=== PATIENT | male | born 1985 | race Two or more races ===

== ENCOUNTER 2017-10-18 10:11 | Emergency (ER) | payer OTHER ==
[~2017-10-18] VITALS: Ht 172.7 cm; Wt 86.2 kg
[2017-10-18 11:21] LABS: BASO % 1 % (0-3); EOS # 0.3 x10^3/uL (0.0-0.7); EOS % 4 % (0-3); HEMATOCRIT 44.5 % (39.0-53.0); HEMOGLOBIN 15.6 g/dL (13.0-17.5); LYMPH # 1.4 x10^3/uL (1.0-4.8); LYMPH % 21 % (24-48); MEAN CORPUSCULAR HEMOGLOBIN 30 pg (25-35); MEAN CORPUSCULAR HGB CONC 35 g/dL (31-37); MEAN CORPUSCULAR VOLUME 87 fL (79-100); MONO # 0.4 x10^3/uL (0.0-1.1); MONO % 6 % (0-9); NEUT # 4.5 x10^3uL (1.8-7.7); NEUT % 68 % (31-73); PLATELET COUNT 285 x10^3/uL (140-400); RED BLOOD COUNT 5.14 x10^6/uL (4.30-5.70); RED CELL DISTRIBUTION WIDTH 13.5 % (11.5-14.5); WHITE BLOOD COUNT 6.6 x10^3/uL (4.0-11.0)
[2017-10-18 11:23] LABS: BARBITURATES NEG (NEG); BENZODIAZEPINES NEG (NEG); CANNABINOIDS POS (NEG); COCAINE POS (NEG); METHADONE NEG (NEG); OPIATES NEG (NEG); PHENCYCLIDINE NEG (NEG)
[2017-10-18 11:23] LABS: ALBUMIN 3.9 g/dL (3.4-5.0); ALBUMIN/GLOBULIN RATIO 1.1 (1.0-1.7); CALCIUM 9.1 mg/dL (8.5-10.1); GFR 88.3; TOTAL BILIRUBIN 0.4 mg/dL (0.2-1.0); TOTAL PROTEIN 7.5 g/dL (6.4-8.2)
[2017-10-18 11:24] LABS: AMPHETAMINE/METHAMPHETAMINE NEG (NEG)
[2017-10-18 11:26] LABS: BACTERIA,URINE 0 /HPF (0-FEW); BILIRUBIN,URINE NEG (NEG); CLARITY,URINE CLEAR; COLOR,URINE YELLOW; GLUCOSE,URINE NEG (NEG); NITRITE,URINE NEG (NEG); RBC,URINE RARE /HPF (0-2); SQUAMOUS EPITHELIAL CELL,UR OCC /LPF; UROBILINOGEN,URINE 0.2 mg/dL (0.2 mg/dL); WBC,URINE RARE /HPF (0-4)
[2017-10-18 11:36] LABS: INFLUENZA A PATIENT NEGATIVE (NEGATIVE); INFLUENZA B PATIENT NEGATIVE (NEGATIVE)
[2017-10-18] MEDS ORDERED: KETOROLAC 30 MG/ML VIAL. IV ONE (12:15)
[2017-10-18] MEDS ORDERED: Percogesic PO (12:19)
[2017-10-18] MEDS ORDERED: CYCL-331 PO (12:19)
[2017-10-18] MEDS ORDERED: BENZ100C PO (12:19)
--- NOTE | 2017-10-18 12:19 | PHYS DOC ---
Past History Past Medical History: Cancer, Other Past Surgical History: No Surgical History Alcohol Use: None Drug Use: Marijuana Adult General Chief Complaint Chief Complaint: ABDOMINAL PAIN HPI HPI 31-year-old male patient states he had history of pancreatic cancer and treated with radiation therapy intakes as in 2016 and was considered to for the last 2 months. Patient complaining of left upper quadrant epigastric pain with radiation to left side of chest for the last 2 days as a constant pain nausea and dry heaves and rated his pain 8 over 10 and states he had the same pain as previous episodes of pancreatitis cancer. Patient also complaining of URI symptoms with cough and congestion and posttussive vomiting for the same time. Evaluation state he uses marijuana more than 20 days ago but denies using any other drug and alcohol. Review of Systems Review of Systems Constitutional: Reports fever and chills Eyes: Denies change in visual acuity, redness, or eye pain [] HENT: Reports nasal congestion and sore throat Respiratory: Reports cough and shortness of breath Cardiovascular: No additional information not addressed in HPI [] GI: Reports abdominal pain, nausea, vomiting, denies bloody stools or diarrhea [ ] : Denies dysuria or hematuria [] Musculoskeletal: Denies back pain or joint pain [] Integument: Denies rash or skin lesions [] Neurologic: Denies headache, focal weakness or sensory changes [] Endocrine: Denies polyuria or polydipsia [] All other systems were reviewed and found to be within normal limits, except as documented in this note. Current Medications Current Medications Current Medications Medications (Trade) Dose Ordered Sig/[facility] Start Time Stop Time Status Last Admin Dose Admin Ketorolac Tromethamine (Toradol) 30 mg 1X ONCE 10/18/17 12:15 10/18/17 12:16 UNV Allergies Allergies Allergies Coded Allergies Type Severity Reaction Last Updated Verified No Known Drug Allergies 10/18/17 No Physical Exam Physical Exam Constitutional: Well developed, well nourished, no acute distress, non-toxic appearance, anxious [] HENT: Normocephalic, atraumatic, bilateral external ears normal, oropharynx moist, no oral exudates, nose normal. [] Eyes: PERRLA, EOMI, conjunctiva normal, no discharge. [] Neck: Normal range of motion, no tenderness, supple, no stridor. [] Cardiovascular:Heart rate regular rhythm, no murmur [] Lungs & Thorax: Bilateral breath sounds clear to auscultation [] Abdomen: Bowel sounds normal, soft, no tenderness, no masses, no pulsatile masses. [] Skin: Warm, dry, no erythema, no rash. [] Back: No tenderness, no CVA tenderness. [] Extremities: No tenderness, no cyanosis, no clubbing, ROM intact, no edema. [] Neurologic: Alert and oriented X 3, normal motor function, normal sensory function, no focal deficits noted. [] Psychologic: Anxious Current Patient Data Vital Signs Vital Signs Date Time Temp Pulse Resp B/P (MAP) Pulse Ox O2 Delivery O2 Flow Rate FiO2 10/18/17 10:25 98.3 73 20 100 Room Air Lab Results Laboratory Tests Test 10/18/17 10:35 10/18/17 10:42 10/18/17 10:43 Urine Collection Type Unknown Urine Color Yellow Urine Clarity Clear Urine pH 5.5 Urine Specific Buras 1.020 Urine Protein Neg (NEG-TRACE) Urine Glucose (UA) Neg mg/dL (NEG) Urine Ketones (Stick) Neg mg/dL (NEG) Urine Blood Neg (NEG) Urine Nitrite Neg (NEG) Urine Bilirubin Neg (NEG) Urine Urobilinogen Dipstick 0.2 mg/dL (0.2 mg/dL) Urine Leukocyte Esterase Neg (NEG) Urine RBC Rare /HPF (0-2) Urine WBC Rare /HPF (0-4) Urine Squamous Epithelial Cells Occ /LPF Urine Bacteria 0 /HPF (0-FEW) Urine Mucus Slight /LPF Urine Opiates Screen Neg (NEG) Urine Methadone Screen Neg (NEG) Urine Barbiturates Neg (NEG) Urine Phencyclidine Screen Neg (NEG) Urine Amphetamine/Methamphetamine Neg (NEG) Urine Benzodiazepines Screen Neg (NEG) Urine Cocaine Screen Pos (NEG) Urine Cannabinoids Screen Pos (NEG) Urine Ethyl Alcohol Neg (NEG) White Blood Count 6.6 x10^3/uL (4.0-11.0) Red Blood Count 5.14 x10^6/uL (4.30-5.70) Hemoglobin 15.6 g/dL (13.0-17.5) Hematocrit 44.5 % (39.0-53.0) Mean Corpuscular Volume 87 fL (79-100) Mean Corpuscular Hemoglobin 30 pg (25-35) Mean Corpuscular Hemoglobin Concent 35 g/dL (31-37) Red Cell Distribution Width 13.5 % (11.5-14.5) Platelet Count 285 x10^3/uL (140-400) Neutrophils (%) (Auto) 68 % (31-73) Lymphocytes (%) (Auto) 21 % (24-48) L Monocytes (%) (Auto) 6 % (0-9) Eosinophils (%) (Auto) 4 % (0-3) H Basophils (%) (Auto) 1 % (0-3) Neutrophils # (Auto) 4.5 x10^3uL (1.8-7.7) Lymphocytes # (Auto) 1.4 x10^3/uL (1.0-4.8) Monocytes # (Auto) 0.4 x10^3/uL (0.0-1.1) Eosinophils # (Auto) 0.3 x10^3/uL (0.0-0.7) Basophils # (Auto) 0.0 x10^3/uL (0.0-0.2) Sodium Level 140 mmol/L (136-145) Potassium Level 4.0 mmol/L (3.5-5.1) Chloride Level 105 mmol/L (98-107) Carbon Dioxide Level 25 mmol/L (21-32) Anion Gap 10 (6-14) Blood Urea Nitrogen 13 mg/dL (8-26) Creatinine 1.0 mg/dL (0.7-1.3) Estimated GFR (Cockcroft-Gault) 88.3 BUN/Creatinine Ratio 13 (6-20) Glucose Level 114 mg/dL (70-99) H Calcium Level 9.1 mg/dL (8.5-10.1) Total Bilirubin 0.4 mg/dL (0.2-1.0) Aspartate Amino Transferase (AST) 29 U/L (15-37) Alanine Aminotransferase (ALT) 56 U/L (16-63) Alkaline Phosphatase 72 U/L (46-116) Total Protein 7.5 g/dL (6.4-8.2) Albumin 3.9 g/dL (3.4-5.0) Albumin/Globulin Ratio 1.1 (1.0-1.7) Lipase 98 U/L (73-393) Influenza Type A (Rapid) Negative (NEGATIVE) Influenza Type B (Rapid) Negative (NEGATIVE) EKG EKG [] Radiology/Procedures Radiology/Procedures [] Course & Med Decision Making Course & Med Decision Making Pertinent Labs studies reviewed. (See chart for details) Evaluation of patient in ER showed 31-year-old male patient from [place] for thinking this area and states he had pancreatic cancer 2 years ago and treated with radiation therapy! She complaining of abdominal pain like previous episodes of his pancreatic cancer pain and asking for pain medication. Patient had drug-seeking behavior and asking for hydrocodone for his pain. Patient had unremarkable physical exam and labs and normal lipase. Patient instructed to follow-up with his primary care physician for chronic pain medication refill. Dragon Disclaimer Dragon Disclaimer This electronic medical record was generated, in whole or in part, using a voice recognition dictation system. Departure Departure: Impression: Primary Impression: Abdominal pain Additional Impressions: Upper respiratory infection Cocaine abuse Marijuana abuse Disposition: HOME, SELF-CARE (At 1225) Condition: STABLE Referrals: PCP,NO (PCP) Patient Instructions: Abdominal Pain, Upper Respiratory Infection, Adult Additional Instructions: Follow-up with your primary care physician in 3-5 days Drink plenty of liquids Return to emergency room if not getting better Scripts Cyclobenzaprine Hcl (CYCLOBENZAPRINE HCL) 10 Mg Tablet 1 TAB PO TID, #15 TAB Prov: AVINASH TAPIA MD 10/18/17 Benzonatate (TESSALON PERLE) 100 Mg Capsule 1 CAP PO TID, #21 CAP Prov: AVINASH TAPIA MD 10/18/17 [Percogesic] No Conflict Check 1 PO QID Y for PAIN, #12 Prov: AVINASH TAPIA MD 10/18/17 Problem Qualifiers AVINASH TAPIA MD Oct 18, 2017 12:19
[2017-10-18 12:25] VITALS: BP 135/75
== END 2017-10-18 12:30 | disposition home or self-care (01) ==
LOC: ER 10:11
DX: R10.12 Left upper quadrant pain (principal); R10.13 Epigastric pain; J06.9 Acute upper respiratory infection, unspecified; F14.10 Cocaine abuse, uncomplicated; F12.10 Cannabis abuse, uncomplicated
CPT/HCPCS: 36415; 80053; 80307; 81001; 83690; 85025; 87804; 96374; 99284; J1885; G0479

== ENCOUNTER 2017-11-05 17:54 | Emergency (ER) | payer OTHER ==
[~2017-11-05 17:54] MED LIST: BENZ100C PO; CYCL-331 PO; Percogesic PO
[2017-11-05] MEDS ORDERED: LIDOCAINE 2% 20 ML VIAL. ONE (18:08)
--- NOTE | 2017-11-05 18:10 | ED.ADGEN ---
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 " I tried to pull it out... 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 Pt. distal neurovascular intact. But marked pain in left patella. Patient can do straight leg lift.. Ligaments appear to be stable. Has been embedded samm nail. Patient does not remember last tetanus. No recent travel. No history immunosuppression. No history of ill contacts. Injury occurred while he was working. Review of Systems Review of Systems Constitutional: Denies fever or chills [] Eyes: Denies change in visual acuity, redness, or eye pain [] HENT: Denies nasal congestion or sore throat [] Respiratory: Denies cough or shortness of breath [] Cardiovascular: No additional information not addressed in HPI [] GI: Denies abdominal pain, nausea, vomiting, bloody stools or diarrhea [] : Denies dysuria or hematuria [] Musculoskeletal: Denies back pain or joint pain []except complaints of left knee pain Integument: Denies rash or skin lesions [] Neurologic: Denies headache, focal weakness or sensory changes [] Endocrine: Denies polyuria or polydipsia [] All other systems were reviewed and found to be within normal limits, except as documented in this note. Family History Family History Noncontributory Current Medications Current Medications Current Medications Medications (Trade) Dose Ordered Sig/Pretty Start Time Stop Time Status Last Admin Dose Admin Bupivacaine HCl (Sensorcaine-Mpf 0.25%) 10 ml 1X ONCE 11/05/17 18:15 11/05/17 18:16 DC 11/05/17 18:16 10 ML Ceftriaxone Sodium (Rocephin Im) 1 gm 1X ONCE 11/05/17 18:45 11/05/17 18:50 DC 11/05/17 18:44 1 GM Ceftriaxone Sodium (Rocephin) 1 gm STK-MED ONCE 11/05/17 18:38 11/05/17 18:39 DC Diphtheria/ Tetanus/Acell Pertussis (Boostrix) 0.5 ml ONCE ONCE 11/05/17 18:15 11/05/17 18:16 DC 11/05/17 18:21 0.5 ML Hydrocodone Bitartrate/ Ibuprofen (Vicoprofen 7.5-200) 2 tab 1X ONCE 11/05/17 18:15 18 18:16 DC 11/05/17 18:28 2 TAB Lidocaine HCl 20 ml 1X ONCE 11/05/17 18:15 11/05/17 18:16 DC 11/05/17 18:30 20 ML See nursing for home meds Allergies Allergies Allergies Coded Allergies Type Severity Reaction Last Updated Verified No Known Drug Allergies 10/18/17 No Physical Exam Physical Exam Constitutional: Well developed, well nourished, in moderately acute distress, non-toxic appearance. [] HENT: Normocephalic, atraumatic, bilateral external ears normal, oropharynx moist, no oral exudates, nose normal. [] Eyes: PERRLA, EOMI, conjunctiva normal, no discharge. [] Neck: Normal range of motion, no tenderness, supple, no stridor. [] Cardiovascular:Heart rate regular rhythm, no murmur [] Lungs & Thorax: Bilateral breath sounds clear to auscultation [] Abdomen: Bowel sounds normal, soft, no tenderness, no masses, no pulsatile masses. [] Skin: Warm, dry, no erythema, no rash. [] Back: No tenderness, no CVA tenderness. [] Extremities: No tenderness, no cyanosis, no clubbing, ROM intact, no edema. [] Except finding of Lt knee nail gun injury as per HPI. Nail appears to become lodge in patellar ligament. Appears to have puncture bursa. Neurologic: Alert and oriented X 3, normal motor function, normal sensory function, no focal deficits noted. [] Psychologic: Affect normal, judgement normal, mood normal. [] Current Patient Data Vital Signs Vital Signs Date Time Temp Pulse Resp B/P (MAP) Pulse Ox O2 Delivery O2 Flow Rate FiO2 11/05/17 19:15 94 16 154/77 (102) 97 Room Air EKG EKG [] Radiology/Procedures Radiology/Procedures My interpretation of x-ray of left knee shows embedded nail. Does not appear to penetrate the patella bone. Post removal no foreign body appreciated.[] Course & Med Decision Making Course & Med Decision Making Pertinent Labs and Imaging studies reviewed. (See chart for details). Procedure note- knee cleaned with Betadine.. Lidocaine and Sensorcaine injected around nail base. Nail removed with vice trim setter helper. Puncture wound irrigated in range of motion. Irrigated nail puncture with dilute Rocephin. Patient received 1 g of Rocephin IM. Tetanus was updated. Patient take Tylenol and ibuprofen as needed for pain. Take Vicoprofen for marked pain. Must follow- up workmen comp. To take Keflex 500 mg 3 times a day x 7 days. Return if any concerns. [] Final Impression Final Impression 1. Nail gun injury to left patella area[] Problems: Dragon Disclaimer Dragon Disclaimer This electronic medical record was generated, in whole or in part, using a voice recognition dictation system. LATOSHA FERRO MD Nov 05, 2017 18:10
[2017-11-05] MEDS ORDERED: HYDROcodon/IBUPROFEN 7.5/200MG 1 TAB TABLET PO ONE (18:15)
[2017-11-05] MEDS ORDERED: DIPHTH,PERTUSS(ACELL),TET TOX 0.5 ML DISP.SYRIN. VAX IM ONE (18:15)
[2017-11-05] MEDS ORDERED: LIDOCAINE 2% 20 ML VIAL. IJ ONE (18:15)
[2017-11-05] MEDS ORDERED: BUPIVACAINE MPF 0.25% 10 ML VIAL. IJ ONE (18:15)
[2017-11-05] MEDS ORDERED: cefTRIAXone SODIUM 1 GM VIAL IV ONE (18:38)
[2017-11-05] MEDS ORDERED: CEPH-264 PO (18:41)
[2017-11-05] MEDS ORDERED: cefTRIAXone IM 1 GM VIAL IM ONE (18:45)
[2017-11-05 19:15] VITALS: BP 154/77
--- NOTE | 2017-11-06 08:48 | RAD ---
EXAM: 1. Left knee 3 views 1810 2. Left knee, 4 views 1856 HISTORY: Foreign body. COMPARISON: None. FINDINGS: The initial image demonstrates a nail within the anterior soft tissues at the superior pole of the patella. The quadriceps tendon stripe remains intact by radiographs. No fractures are identified. Joint spaces and alignment are maintained. There is no joint effusion. The 2nd study demonstrates removal of the nail. There is residual soft tissue swelling but no foreign body. IMPRESSION: 1. Nail within the soft tissues superior to the patella, status post removal.
== END 2017-11-05 19:26 | disposition home or self-care (01) ==
LOC: ER 17:54
DX: S89.82XA Other specified injuries of left lower leg, initial encounter (principal); S80.252A Superficial foreign body, left knee, initial encounter; W29.4XXA Contact with nail gun, initial encounter; Y93.89 Activity, other specified; Y92.89 Other specified places as the place of occurrence of the external cause; Y99.8 Other external cause status
CPT/HCPCS: 73562; 73564; 90471; 90715; 96372; 99284; J0696; J3490; J2001